=== PATIENT | male | born 1985 | race African-American/Black ===

== ENCOUNTER 2017-02-04 00:41 | Inpatient (IN) | payer OTHER ==
--- NOTE | ~2017-02-04 | PN ---
Unit #: [id number] #: [id number] Patient: SAM CHRISTIANSON [id number] [facility] [address] [place] [address] [id number] MR#: [id number] NAME: SAM CHRISTIANSON. ROOM: [facility] Age: 31 Sex: M Admission Date: 02/04/2017 : 1985 Attending Physician: Ruddy Batres M.D. Admitting Physician: Ruddy Batres M.D. Primary Care Physician: Naveed Cisneros PROGRESS NOTES Please note: This report has been placed on the patient's electronic medical record in an incomplete status following multiple physician notifications for completion without response or resolution. DATE OF SERVICE February 06, 2017 DISCUSSION Mr. Christianson is a 31-year-old, -Luxembourger male who was seen today and chart was reviewed. Case was discussed with the staff. He has been anxious, withdrawn, and rather seclusive to himself. Meanwhile, he has been cooperative with treatment recommendations and has been taking medications and tolerating them fairly well. MENTAL STATUS EXAMINATION Young, -Luxembourger male who was casually dressed with a fair personal hygiene and appears to be in no acute distress or discomfort. He was awake and alert on interaction with intact orientation. His mood was anxious and withdrawn . He denies any suicidal or homicidal ideations. His insight and judgement . TREATMENT PLAN 1. We will continue his current medications and treatment protocol. Will monitor his response to the medications and make further adjustments as needed. 2. We will continue to follow up. Dictated by... Naveed Lopez/prateek TD: 02/09/2017 11:41 JOB #: [id number] Unit #: [id number] #: [id number] Patient: SAM CHRISTIANSON PROGRESS NOTES Page 1 of 1 X Ruddy Batres MD X PROGRESS NOTE
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
--- NOTE | ~2017-02-04 | DS ---
Unit #: [id number] #: [id number] Patient: SAM CHRISTIANSON [id number] [facility] [address] [place] [address] [id number] I MR#: [id number] NAME: SAM CHRISTIANSON. ROOM: [facility] Age: 31 Sex: M Admission Date: 02/04/2017 : 1985 Discharge Date: 02/07/2017 Attending Physician: Ruddy Batres M.D. Primary Care Physician: Bernie Casey M.D. DISCHARGE SUMMARY IDENTIFYING DATA Mr. Christianson is a 31-year-old male who was self-referred to the hospital. DISCHARGE DIAGNOSIS Psychiatric: Bipolar disorder, most recent episode depressed, recurrent, moderate, without psychotic features. Medical: None. Stressors: Moderate psychosocial stressors. HISTORY OF PRESENT ILLNESS Please see initial psychiatric evaluation for details. PAST PSYCHIATRIC HISTORY Please see initial psychiatric evaluation for details. PAST MEDICAL HISTORY Please see initial psychiatric evaluation for details. HOSPITAL COURSE The patient was [facility] and was oriented to the hospital environment. Routine p.r.n. medications were initiated. He really was started back on his home medications. Medications were adjusted and he was closely monitored. He was taking the medications regularly and tolerating them fairly well, and was able to show therapeutic response with improvement in depression and anxiety and as such, it was decided that he will be discharged home and will continue treatment on an outpatient basis. DISCHARGE CONDITION Stable. PROGNOSIS Fair. Dictated by... Naveed Lopez/simba TD: 03/04/2017 13:14 JOB #: [id number] Unit #: [id number] #: [id number] Patient: SAM CHRISTIANSON DISCHARGE SUMMARY Page 1 of 1 X Ruddy Batres MD X DISCHARGE SUMMARY
--- NOTE | ~2017-02-04 | HP ---
Unit #: [id number] #: [id number] Patient: CLEO CHRISTIANSON [id number] [place] [address] [id number] I MR#: [id number] NAME: CLEO CHRISTIANSON. ROOM: 63 Age: 31 Sex: M Admission Date: 02/04/2017 : 1985 Attending Physician: Ruddy Batres M.D. Admitting Physician: Ruddy Batres M.D. Primary Care Physician: Bernie Casey M.D. HISTORY AND PHYSICAL HISTORY OF PRESENT ILLNESS Cleo is a 31 year old admitted to [address] [place] [address] because of his illicit substance abuse. PAST MEDICAL HISTORY 1. History of opioid abuse. 2. High blood pressure. 3. Asthma. PAST SURGICAL HISTORY Nothing reported. ALLERGIES Ibuprofen, tramadol, dextromethorphan. SOCIAL HISTORY Smokes 1 pack per day. Denies alcohol. Admits to a long history of poly-illicit substance abuse. FAMILY HISTORY Medically noncontributory. REVIEW OF SYSTEMS CONSTITUTIONAL: No fever or chills. HEENT: Denies any sore throat, ear pain or runny nose. CARDIOVASCULAR: Denies chest pain, irregular heart rhythm or palpitations. CHEST: Denies shortness of breath or cough. No hemoptysis. GASTROINTESTINAL: Denies nausea, vomiting, diarrhea or chronic constipation. ENDOCRINE: Denies history of increased thirst or urination. No recent significant weight loss or gain. GENITOURINARY: Denies dysuria, frequency, or hematuria. SKIN: Denies any rashes. HEMATOLOGIC: Denies history of increased bleeding or bruising. MUSCULOSKELETAL: Denies any hot, swollen joints. No generalized muscle pain. NEUROLOGIC: Denies problems with vision or speech. No frequent, severe headaches. No numbness, tingling or weakness in any extremities. Denies loss of bladder or bowel control. CURRENT MEDICATIONS 1. Risperdal 1 mg q.h.s. 2. Celexa 20 mg daily. Unit #: [id number] #: [id number] Patient: CLEO CHRISTIANSON 3. Nicotine patch 21 mg daily. 4. Norvasc 10 mg daily. 5. Milk of Magnesia p.r.n. 6. Maalox p.r.n. 7. Tylenol p.r.n. 8. Flexeril 10 mg t.i.d. p.r.n. 9. Proventil inhaler p.r.n. PHYSICAL EXAMINATION GENERAL: Alert, well-nourished, in no apparent distress. VITAL SIGNS: Blood pressure 142/90, heart rate 80, respirations 16, temperature 98.6. WEIGHT: 300. HEIGHT: 6 feet 1 inches. SKIN: Warm and dry without rash or lesion. HEENT: Normocephalic. TMs not viewed. Oral and nasal passages clear. Conjunctivae clear. PERRLA. EOMs intact. NECK: Supple without lymphadenopathy or thyromegaly. HEART: Regular rate and rhythm without murmur. LUNGS: Clear. ABDOMEN: Soft, nontender. : Not done. EXTREMITIES: No evidence of cyanosis, clubbing or edema. Moves all without focal deficit. NEUROLOGICAL: Grossly within normal limits. Cranial Nerves: II: Visual hawkins are intact. III, IV AND : Extraocular movements are intact. Pupils are equal, round and reactive to light. V: Facial sensation is grossly normal. VII: Facial movements and expression are normal. VIII: Auditory acuity grossly intact. IX, X: Uvula is midline. Phonation is normal. XI: Patient shrugs shoulders and turns head normally. XII: Tongue protrudes in the midline. Sensory and Motor Function: Sensory and motor sensation is grossly normal. Motor: moves all extremities well. Coordination: Gait is normal. Deep Tendon Reflexes: Intact. IMPRESSION Psychiatric admission. RECOMMENDATIONS PSYCHIATRIC: Per psychiatrist. MEDICAL: See no contraindications to participate in facility's activities. MEDICAL PROGNOSIS Good. MEDICAL CONDITION Stable. Dictated by... Viviana Raya P.A.-C. for Naveed Palma/caitlin Unit #: [id number] #: [id number] Patient: CLEO CHRISTIANSON TD: 02/04/2017 23:16 JOB #: [id number] HISTORY AND PHYSICAL Page 1 of 1 X Viviana Raya HISTORY AND PHYSICAL
--- NOTE | ~2017-02-04 | PN ---
Unit #: [id number] #: [id number] Patient: SAM CHRISTIANSON [id number] [facility] [address] [place] [address] [id number] I MR#: [id number] NAME: SAM CHRISTIANSON. ROOM: 63 Age: 31 Sex: M Admission Date: 02/04/2017 : 1985 Attending Physician: Ruddy Batres M.D. Admitting Physician: Ruddy Batres M.D. Primary Care Physician: Naveed Cisneros PROGRESS NOTES DATE OF SERVICE: 02/05/2017 SUBJECTIVE Mr. Baca is a 31-year-old male, who was seen today and chart was reviewed and the case was discussed with the staff. He has been anxious, withdrawn, and seclusive to himself and reports persistent depression and anxiety. Meanwhile, he has been cooperative with the treatment recommendations and has been taking the medications and tolerating them fairly well; though Risperdal which was started yesterday, he stated that he has tried this before and Risperdal and Abilify, he has had tolerability issues with and therefore he wants to try something different. MENTAL STATUS EXAMINATION Young male, who was casually dressed with fair personal hygiene, appears to be in no acute distress or discomfort. He was awake and alert on interaction with intact orientation. His mood was anxious with a congruent affect. He denies any suicidal or homicidal ideation and also denies any auditory or visual hallucinations. His insight and judgment remain slightly impaired. TREATMENT PLAN 1. We will continue him on his current treatment protocol. We will monitor his response. We will switch his Risperdal to Zyprexa 5 mg b.i.d. 2. We will continue to follow up. Dictated by... Naveed Lopez/simba TD: 02/05/2017 13:31 JOB #: [id number] Unit #: [id number] #: [id number] Patient: SAM CHRISTIANSON PEABRIAN PROGRESS NOTES Page 1 of 1 X Ruddy Batres MD PROGRESS NOTE
[~2017-02-04 00:41] MED LIST: ACETAMINOPHEN325 MG PO; ALBUTEROL17 G1 IH; ALBUTEROL17 GM INH; BACTRIM DS TABL1 TA1 PO; CARDIZEM CD PO; CIPRO PO; KETOPROFEN PO; LORTAB 10/500 T1 TAB PO; MEDROL DOSEPAK4 MG DOB; MEDROL4 MG/DOSE- PO; NEXIUM; NEXIUM PO; ORUDIS75 M1 DOB; PRAVASTATIN SOD40 MG PO; PREDNISONE PO; PROMETHAZINE D118 ML PO; PROVENTIL17 GM IH; ZANTAC PO; ZITHROMAX1 G/PKT PO
[2017-02-04 09:30] LABS: BASOPHIL% 0.5 % (0-2.5); EOSINOPHIL# 0.1 X10e3 (0-0.7); EOSINOPHIL% 1.4 % (0.0-7.0); HEMATOCRIT 43.4 % (38.0-50.0); HEMOGLOBIN 13.9 gm/dL (13.0-16.0); LYMPHOCYTE# 2.3 X10e3 (1.0-3.5); LYMPHOCYTE% 45.2 % (17.0-45.0); MEAN CELL VOLUME 85.5 FL (83-96); MEAN CORPUSCULAR HEMOGLOBIN 27.3 PG (28-34); MEAN CORPUSCULAR HGB CONC 31.9 g/dL (30-36); MEAN PLATELET VOLUME 8.2 FL (6.5-11.5); MONOCYTE# 0.6 X10e3 (0-1.0); MONOCYTE% 11.8 % (3.0-12.0); NEUTROPHIL# 2.1 X10e3 (1.5-7.1); NEUTROPHIL% 41.1 % (40-75); PLATELET COUNT 240 X10e3 (140-420); RED BLOOD COUNT 5.07 X10e (3.90-5.60); RED CELL DISTRIBUTION WIDTH 16.4 % (11.0-15.5); WHITE BLOOD COUNT 5.2 X10e3 (4.0-10.5)
[2017-02-04 09:45] LABS: DIFF IND NO
[2017-02-04 10:05] LABS: THYROID STIMULATING HORMONE 2.52 uIU/ml (0.34-5.60)
[2017-02-04 10:14] LABS: FREE THYROXIN (T4) 0.8 ng/dL (0.58-1.64)
[2017-02-04 10:37] LABS: ALBUMIN SERUM 3.5 g/dL (3.5-5.0); BILIRUBIN,TOTAL 0.2 mg/dL (0.2-2.0); CALCIUM SERUM 8.9 mg/dL (8.4-10.2); GLOM FILT RATE Estimated 114.9 mL/min (>60); POTASSIUM 4.2 mmol/L (3.5-5.1); PROTEIN TOTAL SERUM 6.5 g/dL (6.0-8.3)
[2017-02-06 12:46] LABS: URINE APPEARANCE TURBID; URINE BILIRUBIN NEG (NEG); URINE BLOOD NEG (NEG); URINE COLOR YELLOW; URINE GLUCOSE NEG (NEG); URINE KETONE TRACE (NEG); URINE LEUKOCYTE ESTERASE NEG (NEG); URINE NITRATE NEG (NEG); URINE PROTEIN NEG (NEG); URINE SPECIFIC GRAVITY 1.029 (1.003-1.035)
[2017-02-06 13:27] LABS: AMPHETAMINE NEG (NEG); BARBITURATES NEG (NEG); BENZODIAZEPINES POS (NEG); COCAINE POS (NEG); MARIJUANA POS (NEG); OPIATES NEG (NEG); TRICYCLIC ANTIDEPRESSANTS POS (NEG); U METHADONE NEG (NEG)
== END 2017-02-07 10:25 | disposition home or self-care (01) | DRG 885 ==
LOC: P2L 00:41
PROVIDERS: Psychiatry & Neurology Psychiatry
DX: F33.1 Major depressive disorder, recurrent, moderate (principal); F14.20 Cocaine dependence, uncomplicated; I10 Essential (primary) hypertension; F29 Unspecified psychosis not due to a substance or known physiological condition; F12.10 Cannabis abuse, uncomplicated
CPT/HCPCS: 80053; 80307; 81003; 82947; 84439; 84443; 85025

== ENCOUNTER 2017-03-14 22:00 | Inpatient (IN) | payer OTHER ==
--- NOTE | ~2017-03-14 | HP ---
Unit #: [id number] #: [id number] Patient: CLEO CHRISTIANSON [id number] [place] [address] [id number] I MR#: [id number] NAME: CLEO CHRISTIANSON. ROOM: P186 Age: 31 Sex: M Admission Date: 03/15/2017 : 1985 Attending Physician: Ruddy Batres M.D. Admitting Physician: Ruddy Batres M.D. Primary Care Physician: Bernie Casey M.D. HISTORY AND PHYSICAL HISTORY OF PRESENT ILLNESS Cleo is 31 year old, admitted to [facility] because of his illicit substance abuse which includes, cocaine. PAST MEDICAL HISTORY 1. History of opioid abuse. 2. High blood pressure. 3. Asthma. 4. Morbid obesity. PAST SURGICAL HISTORY Nothing reported. ALLERGIES Ibuprofen, tramadol, dextromethorphan. SOCIAL HISTORY He smokes one pack per day. Denies alcohol, and has a long history of poly illicit substance abuse to include cocaine. FAMILY HISTORY Medically noncontributory. REVIEW OF SYSTEMS CONSTITUTIONAL: No fever or chills. HEENT: Denies any sore throat, ear pain or runny nose. CARDIOVASCULAR: Denies chest pain, irregular heart rhythm or palpitations. CHEST: Denies shortness of breath or cough. No hemoptysis. GASTROINTESTINAL: Denies nausea, vomiting, diarrhea or chronic constipation. ENDOCRINE: Denies history of increased thirst or urination. No recent significant weight loss or gain. GENITOURINARY: Denies dysuria, frequency, or hematuria. SKIN: Denies any rashes. He does report a tender, raised area along his left lower abdomen. HEMATOLOGIC: Denies history of increased bleeding or bruising. MUSCULOSKELETAL: Denies any hot, swollen joints. No generalized muscle pain. NEUROLOGIC: Denies problems with vision or speech. No frequent, severe headaches. No numbness, tingling or weakness in any extremities. Denies loss of bladder or bowel control. CURRENT MEDICATIONS Unit #: [id number] #: [id number] Patient: CLEO CHRISTIANSON 1. Proventil inhaler p.r.n. 2. Wellbutrin XL 150 mg q.a.m. 3. Nicotine patch 7 mg daily 4. Milk of magnesia p.r.n. 5. Maalox p.r.n. 6. Tylenol p.r.n. 7. Cleocin 300 mg one p.o. t.i.d. PHYSICAL EXAMINATION GENERAL: Alert, morbidly obese, no apparent distress. VITAL SIGNS: Blood pressure 150/80, heart rate 80, respirations 16, and temperature 98.6. WEIGHT: 310 pounds. HEIGHT: 6 feet 1 inch. SKIN: Warm and dry without rash or lesion. He does have approximately half dollar sized red raised somewhat tender area along his lower abdomen. Skin is intact. HEENT: Normocephalic. TMs not viewed. Oral and nasal passages clear. Conjunctivae clear. PERRLA. EOMs intact. NECK: Supple without lymphadenopathy or thyromegaly. HEART: Regular rate and rhythm without murmur. LUNGS: Clear. ABDOMEN: Soft, nontender. : Not done. EXTREMITIES: No evidence of cyanosis, clubbing or edema. Moves all without focal deficit. NEUROLOGICAL: Grossly within normal limits. Cranial Nerves: II: Visual hawkins are intact. III, IV AND : Extraocular movements are intact. Pupils are equal, round and reactive to light. V: Facial sensation is grossly normal. VII: Facial movements and expression are normal. VIII: Auditory acuity grossly intact. IX, X: Uvula is midline. Phonation is normal. XI: Patient shrugs shoulders and turns head normally. XII: Tongue protrudes in the midline. Sensory and Motor Function: Sensory and motor sensation is grossly normal. Motor: moves all extremities well. Coordination: Gait is normal. Deep Tendon Reflexes: Intact. IMPRESSION 1. Psychiatric admission. 2. Abscess along his lower abdomen. RECOMMENDATIONS Psychiatric, per psychiatrist. MEDICAL 1. I see no contraindications to participating in facility's activities. 2. Continue Cleocin 300 mg one p.o. t.i.d. MEDICAL PROGNOSIS Good. MEDICAL CONDITION Stable. Dictated by... Unit #: [id number] #: [id number] Patient: CLEO CHRISTIANSON Viviana Nahid Raya P.A.-C. for Naveed Palma/candice TD: 03/16/2017 08:37 JOB #: [id number] HISTORY AND PHYSICAL Page 1 of 1 X Viviana Raya HISTORY AND PHYSICAL
--- NOTE | ~2017-03-14 | CO ---
Unit #: [id number] #: [id number] Patient: SAM CHRISTIANSON [id number] [place] [address] [id number] I MR#: [id number] NAME: SAM CHRISTIANSON. ROOM: P186 Age: 31 Sex: M Admission Date: 03/15/2017 : 1985 Attending Physician: Ruddy Batres M.D. Primary Care Physician: Bernie Casey M.D. Consultation Date: 03/15/2017 CONSULTATION REPORT Allison is a 31-year-old admitted because of his illicit substance abuse. At time of admission, he had an abscess along his lower abdomen. This was examined and addressed under his admission H and P. treatment was outlined. Please see H and P dated 03/16/2017. Dictated by... Viviana Raya P.A.-C. for Naveed Palma/simba TD: 03/20/2017 02:10 JOB #: [id number] CONSULTATION REPORT Page 1 of 1 X Viviana Raya CONSULTATION REPORT
--- NOTE | ~2017-03-14 | DS ---
Unit #: [id number] #: [id number] Patient: SAM CHRISTIANSON [id number] [facility] [address] [place] [address] [id number] MR#: [id number] NAME: SAM CHRISTIANSON. ROOM: 86 Age: 31 Sex: M Admission Date: 03/15/2017 : 1985 Discharge Date: 03/18/2017 Attending Physician: Ruddy Batres M.D. Primary Care Physician: Bernie Casey M.D. DISCHARGE SUMMARY IDENTIFYING DATA Mr. Christianson is a 31-year-old male, who is a resident of [place], [place], and was self-referred to the hospital on a voluntary basis. DISCHARGE DIAGNOSES Psychiatric: Major depressive disorder, recurrent, moderate, without psychotic features; cocaine dependence, moderate. Medical: None. Stressors: Moderate psychosocial stressors. HISTORY OF PRESENT ILLNESS Please see initial psychiatric evaluation for details. PAST PSYCHIATRIC HISTORY Please see initial psychiatric evaluation for details. PAST MEDICAL HISTORY Please see initial psychiatric evaluation for details. HOSPITAL COURSE The patient was admitted to the adult chemical dependency [facility] at [facility] and was oriented to the hospital environment. Routine p.r.n. medications were initiated, and he was started on the detox protocol and was closely monitored. He was taking the medications regularly and was tolerating them fairly well and was able to show a decent and therapeutic response and as such, it was decided that he will be discharged home and will continue treatment on an outpatient basis. DISCHARGE MEDICATIONS Wellbutrin XL 150 mg in the morning for depression. DISCHARGE CONDITION Stable. PROGNOSIS Fair. Dictated by... Naveed Lopez/navidl Unit #: [id number] #: [id number] Patient: SAM CHRISTIANSON TD: 03/18/2017 23:15 JOB #: [id number] DISCHARGE SUMMARY Page 1 of 1 X Ruddy Batres MD X DISCHARGE SUMMARY
--- NOTE | ~2017-03-14 | PA ---
Unit #: [id number] #: [id number] Patient: SAM HOFFMAN [id number] [facility] [address] [place] [address] [id number] I MR#: [id number] NAME: SAM HOFFMAN. ROOM: P186 Age: 31 Sex: M Admission Date: 03/15/2017 : 1985 Date of Assessment: 03/15/2017 Attending Physician: Ruddy Batres M.D. Admitting Physician: Ruddy Batres M.D. Primary Care Physician: Bernie Casey M.D. PSYCHIATRIC ASSESSMENT IDENTIFYING DATA Mr. Hoffman is a 31-year-old male, who is a resident of [place], [place] and was self-referred to the hospital on a voluntary basis. CHIEF COMPLAINT "Depression and anxiety." HISTORY OF PRESENT ILLNESS Mr. Hoffman is a 31-year-old male, who reports that he smokes and snorts 3 g of crack cocaine. He reports he only uses cocaine when he feels depressed and anxious and that he has been able to get his medications for bipolar and depression. He is homeless and misses appointments and has no support system to help get him off drugs or get a place to live and reported that he lost his job due to his anger and verbal disrespect and does report significant mood swings, anger, agitation, irritability, impulsivity, feelings of hopelessness and helplessness and reports having history of suicidal ideations and history of trying to overdose on drugs, but currently denies any suicidal ideations, intent, or plan. SUBSTANCE ABUSE HISTORY The patient reports history of cocaine and cannabis abuse, and currently, cocaine has been his drug of choice. PAST PSYCHIATRIC HISTORY The patient has a history of inpatient psychiatric hospitalization at [facility] in the past, though currently he is not active in treatment program, is not seeing a psychiatrist, not taking psychotropic medications. PAST MEDICAL HISTORY Significant for hypertension and COPD. ALLERGIES Dextromethorphan, ibuprofen, and tramadol. PERSONAL AND SOCIAL HISTORY A 31-year-old male, who reports that he is single, unemployed, and essentially homeless and has poor social support system. MENTAL STATUS EXAMINATION Young male, who was casually dressed with fair personal hygiene, appears to be in no acute distress or discomfort. He was awake Unit #: [id number] #: [id number] Patient: SAM HOFFMAN and alert on interaction with intact orientation. His mood was anxious and depressed with a congruent affect. His speech was slow and restricted in content. His thought processes were disorganized with some looseness of associations and suicidal ideations. His insight and judgment remain significantly impaired. DIAGNOSTIC IMPRESSION Psychiatric: Major depressive disorder, recurrent, moderate, without psychotic features; cocaine dependence, moderate. Medical: None. Stressors: Moderate psychosocial stressors. TREATMENT PLAN 1. The patient has presented with history of mood disorder and has been decompensating and will need inpatient hospitalization for safety and stabilization. We will start him back on his home medications and detox protocol. We will closely monitor for any worsening withdrawal symptoms. 2. Supportive therapy was provided to the patient. 3. Safe, structured, and nourishing environment will be provided. ESTIMATED LENGTH OF STAY 5 to 7 days. ABILITY TO HELP SELF Limited. WILLINGNESS TO HELP SELF The patient appears to be willing to help self. STRENGTHS 1. Communicative. 2. Cooperative. PROBLEMS 1. Chronic dysphoric symptoms. 2. Chronic chemical dependency. 3. Poor social support system. DISCHARGE CRITERIA This will be contingent upon the patient's ability to go through detox without having any significant withdrawal symptoms and his ability to stay safe to himself, particularly after discharge from the hospital. Dictated by... Ruddy Batres M.D. MARCEL/simba TD: 03/15/2017 07:01 JOB #: [id number] Unit #: [id number] #: [id number] Patient: SAM HOFFMAN PSYCHIATRIC ASSESSMENT Page 1 of 1 X Ruddy Batres MD PSYCHIATRIC ASSESSMENT
--- NOTE | ~2017-03-14 | PN ---
Unit #: [id number] #: [id number] Patient: SAM CHRISTIANSON [id number] [facility] [address] [place] [address] [id number] MR#: [id number] NAME: SAM CHRISTIANSON. ROOM: P186 Age: 31 Sex: M Admission Date: 03/15/2017 : 1985 Attending Physician: Ruddy Batres M.D. Admitting Physician: Ruddy Batres M.D. Primary Care Physician: Naveed Cisneros PROGRESS NOTES DATE March 17, 2017 DISCUSSION Mr. Christianson is a 31-year-old male, who was seen today and chart was reviewed and the case was discussed with the staff. He has been anxious, withdrawn, and seclusive to himself. Meanwhile, he has been cooperative with the treatment recommendations and he has been taking the medications and tolerating them fairly well with no reported side effects. MENTAL STATUS EXAMINATION Young male, who was casually dressed with fair personal hygiene and appears to be in no acute distress or discomfort. He was awake and alert on interaction with intact orientation. His mood is anxious and depressed with a congruent affect. His speech is slow and tangential. He denies any suicidal or homicidal ideations. His insight and judgment remain slightly impaired. TREATMENT PLAN 1. We will continue him on his current medications and treatment protocol, and will monitor his response to the medications, and make further adjustments as needed. 2. We will continue to followup. Dictated by... Naveed Lopez/candice TD: 03/17/2017 11:08 JOB #: [id number] Unit #: [id number] #: [id number] Patient: SAM CHRISTIANSON PROGRESS NOTES Page 1 of 1 X Ruddy Batres MD X PROGRESS NOTE
[2017-03-15 09:46] LABS: BASOPHIL% 0.6 % (0-2.5); EOSINOPHIL# 0.1 X10e3 (0-0.7); EOSINOPHIL% 1.6 % (0.0-7.0); HEMATOCRIT 43.9 % (38.0-50.0); LYMPHOCYTE% 47.5 % (17.0-45.0); MEAN CELL VOLUME 85.4 FL (83-96); MEAN CORPUSCULAR HEMOGLOBIN 27.3 PG (28-34); MEAN PLATELET VOLUME 8.6 FL (6.5-11.5); MONOCYTE# 0.6 X10e3 (0-1.0); MONOCYTE% 9.7 % (3.0-12.0); NEUTROPHIL# 2.5 X10e3 (1.5-7.1); NEUTROPHIL% 40.6 % (40-75); PLATELET COUNT 238 X10e3 (140-420); RED BLOOD COUNT 5.14 X10e (3.90-5.60); RED CELL DISTRIBUTION WIDTH 16.1 % (11.0-15.5); WHITE BLOOD COUNT 6.2 X10e3 (4.0-10.5)
[2017-03-15 09:52] LABS: DIFF IND NO
[2017-03-15 10:18] LABS: ALBUMIN SERUM 3.7 g/dL (3.5-5.0); BILIRUBIN,TOTAL 0.4 mg/dL (0.2-2.0); BUN/CREATININE RATIO 12.22; CALCIUM SERUM 9.2 mg/dL (8.4-10.2); CREATININE SERUM 0.9 mg/dL (0.6-1.4); GLOM FILT RATE Estimated 130.5 mL/min (>60); POTASSIUM 3.8 mmol/L (3.5-5.1); PROTEIN TOTAL SERUM 6.2 g/dL (6.0-8.3)
[2017-03-16 12:48] LABS: URINE APPEARANCE TURBID; URINE BILIRUBIN NEG (NEG); URINE BLOOD NEG (NEG); URINE COLOR DK YELLOW; URINE GLUCOSE NEG (NEG); URINE KETONE TRACE (NEG); URINE LEUKOCYTE ESTERASE 1+ (NEG); URINE NITRATE NEG (NEG); URINE PH 5.5 (5-8); URINE PROTEIN NEG (NEG); URINE SPECIFIC GRAVITY 1.029 (1.003-1.035)
[2017-03-16 12:51] LABS: URBCS1 AUWI 0-2 /[HPF] (0-2); URINE BACTERIA AUWI NEG (NEGATIVE); URINE SQUAMOUS EPITHELIAL CELL OCC /[HPF]
[2017-03-16 13:52] LABS: AMPHETAMINE NEG (NEG); BARBITURATES NEG (NEG); BENZODIAZEPINES NEG (NEG); COCAINE POS (NEG); MARIJUANA POS (NEG); OPIATES NEG (NEG); TRICYCLIC ANTIDEPRESSANTS NEG (NEG); U METHADONE NEG (NEG)
== END 2017-03-18 13:00 | disposition home or self-care (01) | DRG 885 ==
LOC: P1E 03-15 02:50
PROVIDERS: Psychiatry & Neurology Psychiatry
PROC: HZ2ZZZZ Detoxification Services for Substance Abuse Treatment (ICD-10-PCS; principal; 2017-03-15)
DX: F33.1 Major depressive disorder, recurrent, moderate (principal); F14.20 Cocaine dependence, uncomplicated; R45.851 Suicidal ideations; L02.211 Cutaneous abscess of abdominal wall; Z68.41 Body mass index [BMI] 40.0-44.9, adult; Z59.0 Homelessness; Z88.6 Allergy status to analgesic agent; Z88.8 Allergy status to other drugs, medicaments and biological substances; F17.210 Nicotine dependence, cigarettes, uncomplicated; E66.01 Morbid (severe) obesity due to excess calories
CPT/HCPCS: 80053; 80307; 81003; 82947; 85025; J1200